=== PATIENT | male | born 1965 | race Caucasian/White ===

== ENCOUNTER 2017-06-27 19:53 | Emergency (ER) | payer OTHER ==
--- NOTE | 2017-06-27 19:59 | EDPHY ---
H & P Time Seen by Provider: 06/27/17 19:55 HPI/ROS: CHIEF COMPLAINT: Can't urinate HISTORY OF PRESENT ILLNESS: Had microdiskectomy today by Dr. Rolon for left leg radicular symptoms, numbness and pain. The symptoms in his left leg have already started to get better but he now presents by EMS with a full bladder and can't urinate. Staff attempted to place catheter in at the surgery center was unable, sent here. Discomfort severe. Patient has had urinary hesitancy in the past but has never seen a urologist. Does not have new weakness or numbness in legs. Symptoms currently are severe with suprapubic discomfort. REVIEW OF SYSTEMS: Eye: no change in vision ENT: no sore throat Cardiac: no chest pain or syncope Pulmonary: no cough or SOB Abdomen: no vomiting, diarrhea, abdominal pain Musculoskeletal: HPI Skin: no rash Neuro: HPI Constitutional: no fever : HPI A comprehensive 10 point review of systems is otherwise negative aside from elements mentioned in the history of present illness. PAST MEDICAL HISTORY: Micro diskectomy Social history: Nonsmoker General Appearance: Alert and conversant, cooperative. Eyes: No scleral icterus. ENT, Mouth: Normal mucous membranes. Respiratory: Normal respiratory effort, breath sounds equal, lungs are clear to auscultation. Cardiovascular: Regular rate and rhythm. Gastrointestinal: Suprapubic fullness and discomfort, normal external male genitalia. Neurological: Alert, uncomfortable, moves both feet and has sensation present to light touch in both feet. Skin: Warm and dry, no rashes. Musculoskeletal: No peripheral edema. Psychiatric: Not agitated. Emergency Department course/MDM: Nursing order for Lamb catheter. 2024: 1 L plus draining from the bladder, Lamb in place. Discussed with Dr. Rolon , Home with leg bag and outpatient urology follow-up. Ольга will assist tomorrow with urology followup. Likely related to surgery, I think that urinary tract infection unlikely. Acute spinal cord compromise unlikely. 2100: Stable for discharge with leg bag. Patient is requesting referral to a urologist in [place] if possible; given Trevor suction worker, and Zach in [place]. Constitutional: Initial Vital Signs Temperature (C) 36.5 C 06/27/17 19:50 Heart Rate 71 06/27/17 19:50 Respiratory Rate 18 06/27/17 19:50 Blood Pressure 112/58 L 06/27/17 19:50 O2 Sat (%) 99 06/27/17 19:50 O2 Delivery Mode Room Air Departure - Departure Disposition: Home, Routine, Self-Care Clinical Impression: Acute retention of urine Condition: Good Instructions: Lamb Catheter Placement and Care (ED) Additional Instructions: Dr. Murray is the urologist suction worker; Dr. Serrano is [facility] in [place]. Referrals: Marisabel Murray MD [Medical Doctor] - As per Instructions Jai Paz MD [Medical Doctor] - As per Instructions Rene Serrano MD [Medical Doctor] - As per Instructions
[2017-06-27] MEDS ORDERED: LIDOCAINE 2% JELLY 20 ML (UROJECT) ONE (20:00)
[2017-06-27 21:02] VITALS: RESP 18; TEMP 97.7
[2017-06-27 22:05] VITALS: BP 114/75; PULSE 86; O2SAT 96
== END 2017-06-27 21:45 | disposition home or self-care (01) ==
PROC: 0T9B70Z Drainage of Bladder with Drainage Device, Via Natural or Artificial Opening (ICD-10-PCS; principal; 2017-06-27)
DX: R33.9 Retention of urine, unspecified (principal)